=== PATIENT | female | born 1940 | race Caucasian/White ===

== ENCOUNTER 2017-03-15 15:26 | Outpatient (CLI) | payer OTHER ==
[~2017-03-15 15:26] MED LIST: ASPIRIN EC81 MG PO; BIOTIN1000 MCG PO; BUPROPION HCL150 M2 PO; CIPRO500 MG PO; CRANBERRY125 MG PO; FISH OIL PO; GABAPENTIN300 MG PO; HYDROCHLOROTHIA25 MG PO; LOVASTATIN40 MG PO; MULTIPLE VITAMIN PO; OXYBUTYNIN CHLO10 MG PO; PERCOCET1 TA1 PO; PROBIOTI1 PO; PROLIA60 MG/ML IM; TUMS500 MG PO; VENTOLIN HFA IN; ZERTEC
--- NOTE | 2017-03-15 16:10 | DIAGNOSTIC IMAGING REPORT ---
PROCEDURE: XR CHEST 2 VIEW INDICATION: COPD/SMOKING TECHNIQUE: PA and lateral views. COMPARISON: Chest 04/15/2016 FINDINGS: Lungs are clear and hyperexpanded. Heart and mediastinum are normal. Thorax is normal. IMPRESSION: 1. No acute disease, COPD.
== END 2017-03-15 23:00 | disposition home or self-care (01) ==
LOC: XR SRH 15:26
DX: Z01.818 Encounter for other preprocedural examination (principal); Z01.812 Encounter for preprocedural laboratory examination; Z01.810 Encounter for preprocedural cardiovascular examination; N81.11 Cystocele, midline; J44.9 Chronic obstructive pulmonary disease, unspecified; Z87.891 Personal history of nicotine dependence